=== PATIENT | male | born 1980 | race Caucasian/White ===

== ENCOUNTER → 2017-05-13 | Day surgery (SDC) | payer OTHER ==
[~2017-05-13] MED LIST: ACETAMINOPHEN/HYDROcodone 325 MG/5 MG TAB ONE; BUPIVACAINE HCL PF 0.25% 30 ML VIAL ONE; KETOROLAC TROMETHAMINE 30 MG/ML (IVP) VIAL IV PUSH ONE; LACTATED RINGER'S 1000 ML INJ 1,000 ML ONE; MIDAZOLAM HCL 2 MG/2 ML VIAL ONE; MORPHINE SULFATE 4 MG/ML INJ ONE; ONDANSETRON HCL 4 MG/2 ML VIAL IV PUSH ONE; PROPOFOL 200 MG/20 ML AMP IV ONE; ceFAZolin 2 GM PREMIX 50 ML ONE
--- NOTE | 2017-05-13 21:35 | MP ---
cc: AMIRAH ANDRADE DPM DATE OF SURGERY 05/13/17 SURGEON Aranza Andrade DPM PREOPERATIVE DIAGNOSIS Left hallux abductovalgus. POSTOPERATIVE DIAGNOSIS Left hallux abductovalgus. PROCEDURES 1. Left modified Lapidus bunionectomy 2. Fusion first metatarsal medial cuneiform joint. MATERIALS USED Your.MD x1 4.0 dart fire cannulated screw and x1 3.5 [employer] dart fire cannulated screw. ANESTHESIA General with local, 0.25% Marcaine plain 20 mL TOURNIQUET TIME 88 minutes at a setting of 215 mmHg about the patient's left mid calf. PLAN OF ACTIVITY PACU then DC home once stable per same-day surgery criteria. JUSTIFICATION FOR PROCEDURE This is a pleasant 37-year-old male with worsening left foot bunion symptoms. He actually had the same procedure performed within the past year on the right. He wished for the same. No guarantees given or implied regarding the outcome. PROCEDURE IN DETAIL Under mild sedation, the patient was brought to the operating room, placed on the operating table in the supine position. Following the induction of general anesthesia, local anesthesia was obtained about the patient's left foot utilizing standard block fashion. Left foot was then scrubbed, prepped and draped in the usual aseptic fashion. The foot was elevated, exsanguinated and the previously placed mid calf tourniquet was inflated to 215 mmHg. An incision was made over the dorsal aspect of the first MPJ which was slightly curved at the base of the first metatarsal medial cuneiform joint, more to the center of the metatarsal. Sharp and blunt dissection was carried down to the first MPJ. An L-shaped capsulotomy was performed revealing a prominent dorsomedial eminence. This was transected utilizing power instrumentation. Sharp and blunt dissection was then carried down to the level of the first interspace in which the level of the conjoined tendon was identified and the fibular suspensory ligament was severed freeing up lateral contractures. Next, the McGlamry elevator was introduced deep in the first MPJ freeing up any residual plantar and lateral contractures. Next, sharp and blunt dissection was carried down to the level of the metatarsal medial cuneiform joint being careful not to violate the anterior tibialis with a vital neurovascular structures as well as EHL. Next, a bi-planar wedge resection of the base of the first metatarsal and the head of the medial cuneiform took place removing all cartilaginous surface allowing for plantar flexion of the first metatarsal medial cuneiform construct as well as closing down the first second IM angle moving the first metatarsal over the sesamoidal apparatus. Utilizing proper AO technique, two screws were then placed, one from dorsal to distal to plantar proximal from the medial cuneiform to the base of the first metatarsal and one from distal first metatarsal base to plantar proximal into the medial cuneiform. This was performed under live fluoroscopy. Proper AO technique was utilized compressing the arthrodesis site. There was noted to be correction of the bunion with no gapping at the fusion site. The wound was flushed with copious amounts of normal saline. Periosteum and joint capsule were closed utilizing Vicryl. Skin was closed utilizing nylon. Upon relieving the tourniquet, there was a prompt hyperemic response to all digits without any delayed capillary fill time. The patient was positioned within a controlled ankle motion boot. He was extubated uneventfully, transferred from OR to PACU. He is heel transfer weight bear only. He will follow up within 3-5 days. GERARD Lowry /2:42 PM /9:20 PM
== END | disposition home or self-care (01) ==
LOC: ESDC 11:04
PROVIDERS: ATTEND Podiatrist Foot & Ankle Surgery
DX: M20.12 Hallux valgus (acquired), left foot (principal)
CPT/HCPCS: 01480; 28297; 73620; 76000; C1713; J0690; J1885; J2250; J2270; J2405; J3010; J7120